=== PATIENT | female | born 1965 | race Caucasian/White ===

== ENCOUNTER → 2023-09-02 13:32 | Outpatient (REF) | payer BC, SELFPAY | LOC: HWWDC 13:32 | PROVIDERS: ATTENDING PHYSICIAN Family Medicine | DX: Z12.31 Encounter for screening mammogram for malignant neoplasm of breast (principal) | CPT/HCPCS: 77063; 77067 ==

== ENCOUNTER → 2023-09-17 14:42 | Outpatient (REF) | payer BC, SELFPAY | LOC: HWRCS 14:42 | PROVIDERS: ATTENDING PHYSICIAN Family Medicine | DX: R06.09 Other forms of dyspnea (principal) | CPT/HCPCS: 93306 ==

== ENCOUNTER → 2023-10-22 12:42 | Outpatient (REF) | payer BC, SELFPAY | LOC: RCS 12:42 | PROVIDERS: ATTENDING PHYSICIAN Family Medicine | DX: R07.9 Chest pain, unspecified (principal) | CPT/HCPCS: 93017 ==

== ENCOUNTER → 2023-11-05 07:57 | Outpatient (REF) | payer BC, SELFPAY | LOC: RSP 07:57 | PROVIDERS: ATTENDING PHYSICIAN Family Medicine | DX: R06.09 Other forms of dyspnea (principal) | CPT/HCPCS: 94010 ==

== ENCOUNTER → 2024-09-03 07:52 | Outpatient (REF) | payer BC, SELFPAY | LOC: WDC 07:52 | PROVIDERS: ATTENDING PHYSICIAN Family Medicine | DX: Z78.0 Asymptomatic menopausal state (principal); Z12.31 Encounter for screening mammogram for malignant neoplasm of breast | CPT/HCPCS: 77063; 77067; 77080 ==

== ENCOUNTER → 2024-11-27 07:33 | Outpatient (REF) | payer BC, SELFPAY | LOC: HWRAD 07:33 | PROVIDERS: ATTENDING PHYSICIAN Family Medicine | DX: R06.09 Other forms of dyspnea (principal) | CPT/HCPCS: 71046 ==

== ENCOUNTER → 2024-12-23 09:12 | Outpatient (REF) | payer BC, SELFPAY | LOC: HWRAD 09:12 | PROVIDERS: ATTENDING PHYSICIAN Family Medicine | DX: R74.8 Abnormal levels of other serum enzymes (principal) | CPT/HCPCS: 76700 ==

== ENCOUNTER → 2025-02-23 09:03 | Outpatient (REF) | payer BC, SELFPAY | LOC: RAD 09:03 | PROVIDERS: ATTENDING PHYSICIAN Student in an Organized Health Care Education/Training Program; FAMILY PHYSICIAN Family Medicine | DX: I87.2 Venous insufficiency (chronic) (peripheral) (principal) | CPT/HCPCS: 93971 ==

== ENCOUNTER → 2025-04-20 12:38 | Outpatient (REF) | payer BC, SELFPAY | LOC: RAD 12:38 | PROVIDERS: ATTENDING PHYSICIAN Registered Nurse; FAMILY PHYSICIAN Family Medicine | DX: M79.89 Other specified soft tissue disorders (principal) | CPT/HCPCS: 93971 ==

== ENCOUNTER 2025-04-21 17:31 | Emergency (ER) | payer BC, SELFPAY ==
[2025-04-21 17:39] VITALS: BP 156/93
[2025-04-21 20:43] VITALS: BMI 25.4
[2025-04-21 21:00] VITALS: BP 134/75
[2025-04-21 22:15] VITALS: BP 136/94
[2025-04-21 23:00] VITALS: BP 135/92
--- NOTE | 2025-04-21 23:03 | ED.GENMED ---
History of Present Illness
General
Chief Complaint: DVT/Possible Blood Clot
Source: patient
Exam Limitations: none
Time Seen by Provider: 04/21/25 21:10
History of Present Illness
History of Present Illness:
Patient with a history of superficial varicose veins. Has had ongoing issues with a hard knot for last 3 weeks. Became more painful. Had an outpatient ultrasound yesterday that showed greater saphenous vein thrombus. Started on Xarelto 50 mg
twice daily. Took 2 doses yesterday and 1 this morning. Concerned there is more knots in this general area. No chest pain shortness of breath fever chills or other complaints
Past History
Past History
ED Past Medical History: Hypercholesterolemia and Other (Migraines/kidney stones/anemia)
ED Past Surgical History: Appendectomy, , Gynecological and Orthopedic
Social History
Tobacco: Non-smoker
Alcohol: None
Drug: None
Personal:
Living: with family
Employment: Other
Family History
Family History: Other
Review of Systems
Review of Systems
All Other Systems: Not applicable
Constitutional: Denies fever or chills
Respiratory: Reports no symptoms
Cardiac: Reports no symptoms
Phy Exam
Physical Exam
Physical Exam:
GENERAL: Alert and oriented in no apparent distress
CARDIAC: Regular rate and rhythm
LUNGS: No distress
NEUROLOGICAL: Alert and oriented , grossly non-focal
SKIN: Warm and dry, area of old yellow ecchymosis to the left lower medial calf. Area of hardness and superficial varicosity with some minor ecchymosis to the lower leg. Area of ecchymosis and tenderness to the medial thigh with more proximal
erythema and tenderness
MUSCULOSKELETAL: No edema,no deformity.Good color
PSYCH: Normal and appropriate interaction.
Course
Orders/Labs/Results
Orders:
Orders
04/21/25 17:33
Legs, left US [US Periph Venous LOWER Ext LT] Urgent
Comment:
Reason For Exam: new bumps pain
04/21/25 23:36
Doxycycline [Vibramycin] 100 mg PO NOW STA
Vital Signs
Initial and Last Documented VS:
Initial Vital Signs
Temp Pulse Resp BP Pulse Ox
98.0 F 89 20 156/93 98
04/21/25 17:39 04/21/25 17:39 04/21/25 17:39 04/21/25 17:39 04/21/25 17:39
Last Documented Vital Signs
Temp Pulse Resp BP Pulse Ox
98.0 F 87 19 135/92 96
04/21/25 17:39 04/21/25 23:30 04/21/25 23:30 04/21/25 23:00 04/21/25 23:30
MDM/Problems Addressed
Differential Diagnosis Includes:
Patient with extensive superficial thrombophlebitis. No progression by ultrasound. Has only been on a DOAC for 1+ day. Would continue current regimen. There is areas of erythema with this. Would consider secondary infectious component. Will
add doxycycline. Patient is comfortable with this approach
*Radiology
Radiology exam reviewed: radiology read reviewed (No acute changes)
*Pulse Oximetry
SaO2: 96
Oxygen Mode of Delivery: Room air
Patient hypoxic: no
*Critical Care Note
Total Time (30-74mins, 75-104mins- exclusive of procedures): Not Applicable
ED Attending Note
-
Portions of this chart may have been created with voice recognition software.� Occasional wrong word or��sound alike� substitutions may have occurred due to the inherent limitations of voice recognition software.
Discharge Plan
Departure
Patient Disposition: Home (Routine Discharge)
Date of Disposition: 04/21/25
Time of Disposition: 23:05
Patient with high blood pressure during this ER visit?: Yes
Discharge Problem:
Superficial thrombophlebitis left leg
Instructions: Superficial vein phlebitis and thrombosis, Managing increased bleeding risk
Prescriptions:
New
doxycycline hyclate 100 mg capsule
100 mg PO BID 10 Days Qty: 20 0RF
No Action
mirabegron [Myrbetriq] 50 MG tablet extended release 24 hr
50 mg PO HS
rosuvastatin [Crestor] 10 MG tablet
10 mg PO HS
cholecalciferol (vitamin D3) 2,000 UNIT tablet
2,000 unit PO
estradiol 1 APPLIC cream
1 applic vaginal WEEKLY
Patient Comments:
tuesdays
acetaminophen [Tylenol Extra Strength] 500 MG tablet
1,000 mg PO Q6HPRN PRN (Reason: mild pain) Qty: 1 0RF
ibuprofen 200 MG tablet
400 - 600 mg PO Q6HPRN PRN (Reason: moderate pain) Qty: 1 0RF
oxycodone 5 MG tablet
5 mg PO Q4HPRN PRN (Reason: breakthrough/severe pain) Qty: 5 0RF
amoxicillin-pot clavulanate 1 TABLET tablet
1 tab PO Q12 Qty: 7 0RF
Referrals:
Magda Edmonds MD [Family Provider, Family Practice] - Follow up in 2-3 days
Activity Restrictions/Additional Instructions:
The prescription was sent to your pharmacy
As we discussed, return with increasing pain increasing swelling fever chest pain shortness of breath or any other concerning symptoms
Interventions
Interventions:
*Risk Screen - Suicide Last Done: 04/21/25 22:36
*General Assessment Last Done: 04/21/25 17:39
*Neglect/Abuse Screening Last Done: 04/21/25 22:36
*ED- Fall Risk Assessment Last Done: 04/21/25 22:36
*ED COVID-19 Vaccine History Last Done: 04/21/25 22:36
*ED Influenza Vaccine History Last Done: 04/21/25 22:36
*Nursing Disposition Last Done: 04/21/25 23:49
ED- Cardiac Assessment Last Done: 04/21/25 20:40
ED- Pulmonary Assessment Last Done: 04/21/25 20:40
ED-Peripheral Vascular Assessment Last Done: 04/21/25 20:42
ED-Skin Assessment Last Done: 04/21/25 20:40
Discharge Date and Time
Discharge Date/Time: 04/21/25 23:50
Print Language: [id number]
[2025-04-21] MEDS: VIBRAMYCIN 100 MG PO (23:39)
== END 2025-04-21 23:50 | disposition home or self-care (01) ==
LOC: EMR 17:31
PROVIDERS: EMERGENCY PHYSICIAN Emergency Medicine; FAMILY PHYSICIAN Family Medicine
DX: I80.02 Phlebitis and thrombophlebitis of superficial vessels of left lower extremity (principal); I83.90 Asymptomatic varicose veins of unspecified lower extremity; L53.9 Erythematous condition, unspecified; E78.00 Pure hypercholesterolemia, unspecified; Z79.01 Long term (current) use of anticoagulants
CPT/HCPCS: 99284; 93971

== ENCOUNTER → 2025-07-13 13:45 | Outpatient (REF) | payer BC, SELFPAY | LOC: RAD 13:45 | PROVIDERS: ATTENDING PHYSICIAN Family Medicine | DX: I82.812 Embolism and thrombosis of superficial veins of left lower extremity (principal) | CPT/HCPCS: 93971 ==